=== PATIENT | female | born 1985 | race African-American/Black ===

== ENCOUNTER 2016-06-16 10:11 | Emergency (ER) | payer OTHER ==
[~2016-06-16 10:11] MED LIST: /ESCI10TA PO; /LAMO15TA PO; ACET50TA PO; AUGM875T27 PO; INSUH10VL SC; INSULANT SC; NOVOINJ4 IJ; NOVOLOG100 MG/ML SC; PERCOCET PO; PRENTAB8 PO; PROZ40CA OR; TRAZ50TA2 PO; WELL100T PO; ZANT150T OR; humulin R SQ; lantus SQ; oxcarbazepine PO
[2016-06-16 12:53] LABS: BASO % 0.7 % (0.0-1.0); EOS % 0.6 % (0.0-3.0); LARGE UNSTAINED CELL # 0.1 K/mm3 (0.0-0.4); LARGE UNSTAINED CELL % 1.3 % (0.0-4.0); LYMPH # 1.4 K/mm3 (1.5-4.5); MEAN CORPUSCULAR HEMOGLOBIN 25.5 pg (27.0-33.0); MEAN CORPUSCULAR HGB CONC 29.4 g/dl (32.0-36.5); MEAN CORPUSCULAR VOLUME 86.9 fl (80.0-96.0); MONO # 0.2 K/mm3 (0.0-0.8); MONO % 3.5 % (0.0-5.0); NEUTROPHILS # 4.2 K/mm3 (1.8-7.7); NEUTROPHILS % 70.8 % (36.0-66.0); PLATELET COUNT, AUTOMATED 385 k/mm3 (150-450); RED CELL DISTRIBUTION WIDTH 16.8 % (11.5-14.5); WHITE BLOOD COUNT 5.9 K/mm3 (4.0-10.0)
[2016-06-16 13:06] LABS: ALBUMIN 3.6 GM/DL (3.2-5.2); ALBUMIN/GLOBULIN RATIO 0.84 (1.00-1.93); ALKALINE PHOSPHATASE 113 U/L (45-117); ALT/SGPT 16 U/L (12-78); AMYLASE 42 U/L (25-115); ANION GAP 11 MEQ/L (8-16); AST/SGOT 12 U/L (15-37); BILIRUBIN,DIRECT 0.1 MG/DL (0.0-0.2); BILIRUBIN,TOTAL 0.6 MG/DL (0.2-1.0); BLOOD UREA NITROGEN 7 MG/DL (7-18); CALCIUM LEVEL 9.1 MG/DL (8.5-10.1); CARBON DIOXIDE LEVEL 27 MEQ/L (21-32); CHLORIDE LEVEL 100 MEQ/L (98-107); CREATININE FOR GFR 0.99 MG/DL (0.55-1.02); GLOMERULAR FILTRATION RATE > 60.0 (>60); POTASSIUM SERUM 4.6 MEQ/L (3.5-5.1); SODIUM LEVEL 138 MEQ/L (136-145); TOTAL PROTEIN 7.9 GM/DL (6.4-8.2)
--- NOTE | 2016-06-16 13:06 | REP ---
KUB: Single view. History: Abdominal pain. Question constipation. Findings: The bowel gas pattern is unremarkable. There is air and stool in a nondistended colon. No large or small bowel dilation is seen. Psoas margins and flank stripes are intact. No mass, organomegaly, or pathologic calcification is seen. Impression: Negative KUB. Signed by Ish Rodriguez MD 06/16/2016 04:21 P
[2016-06-16 13:08] LABS: GLUCOSE, FASTING 436 MG/DL (70-105)
--- NOTE | 2016-06-16 13:49 | REP ---
Chest x-ray: Two views. History: Left-sided chest pain . Comparison study: No comparison . Findings: The lungs are well inflated and free of infiltrate. The pleural angles are sharp. The heart size is normal. Pulmonary vasculature is not increased. No significant bony abnormality is seen. Impression: Negative chest x-ray. Signed by Ish Rodriguez MD 06/16/2016 01:40 P
[2016-06-16] MEDS ORDERED: HumuLIN R (REGULAR) INSULIN (NovoLIN R) **100U/ML** PER UNIT As Ordered ONE (14:00)
--- NOTE | 2016-06-16 15:25 | EDDOCDS ---
Physician Documentation [facility] Name: Claire Brewer Age: 30 yrs Sex: Female : 1985 Arrival Date: 06/16/2016 Time: 10:11 Bed I5 / M5 Private MD: HILARY Laura Disposition: 06/16/16 15:08 Discharged to Home/Self Care. Impression: Unspecified abdominal pain, Type 1 diabetes mellitus with hyperglycemia. - Condition is Stable. - Discharge Instructions: Diabetic Ketoacidosis, Blood Glucose Monitoring, Adult, Abdominal Pain, Adult. - Medication Reconciliation, Local Pharmacy Hours form. - Follow up: HILARY Laura; When: Call to arrange an appointment; Reason: Recheck today's complaints. Follow up: Emergency Department; When: As needed; Reason: Worsening of conditions. - Problem is new. - Symptoms have improved. Historical: - Allergies: PENICILLINS; - Home Meds: 1. Lotrel Unknown Oral once daily 2. lamotrigine 225mg in am and 25mg at noon Oral tab 1 tab 2 times per day 3. Lantus 50 Sub-Q soln twice a day 4. Novolog 100 unit/mL Sub-Q soln 1 unit/ 6 carbs- with meals 5. clonazepam 0.5 mg Oral tab nightly as needed 6. Seroquel 25 mg oral tab 1-2 pills prn at HS - PMHx: Anxiety; Depression; Diabetes - IDDM: controlled; Hypertension; - PSHx: ; Cystectomy; Tubal ligation; - Social history: Smoking status: Patient states was never smoker of tobacco. No barriers to communication noted, The patient speaks fluent Romanian, Speaks appropriately for age. - Family history: Not pertinent. - : The pt / caregiver states he / she is not on anticoagulants. Home medication list is obtained from the patient. - Exposure Risk Screening:: None identified. 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 3 in. (160.02 cm) (R); Pain 4/10; 14:48 BP 136 / 84; Pulse 95; Resp 18; Temp 97.4; Pulse Ox 99% ; Pain 0/10; jam1 15:22 BP 135 / 89; Pulse 97; Resp 18; Temp 98.1(T); Pulse Ox 100% on R/A; Pain 2/10; mcp 10:14 Body Mass Index 32.95 (84.37 kg, 160.02 cm) elp MDM: 11:36 [facility] [place] Agreement was scanned into [employer] and attached to record. lg 11:59 UCG by Nursing ordered. hs1 12:14 Financial registration complete. lg 12:17 Amylase Ordered. EDMS 12:17 Basic Metabolic Profile Ordered. EDMS 12:17 CBC with Diff Ordered. EDMS 12:17 Lipase Ordered. EDMS 12:17 Liver Profile Ordered. EDMS 12:17 UA Ordered. EDMS 12:17 Urine Culture Ordered. EDMS 12:17 KUB Ordered. EDMS 13:15 Basic Metabolic Profile Reviewed. ar2 13:15 CBC with Diff Reviewed. ar2 13:15 Liver Profile Reviewed. ar2 13:15 UA Reviewed. ar2 13:15 Amylase Reviewed. ar2 13:15 Lipase Reviewed. ar2 13:18 Insulin Regular Human 5 units Sub-Q once ordered. ar2 13:18 Accucheck ordered. ar2 13:19 D-Dimer Quant Ordered. EDMS 13:19 Chest, 2 View (pa\E\lat) Ordered. EDMS 13:49 TROPONIN Ordered. EDMS 14:26 Basic Metabolic Profile Reviewed. ar2 14:26 Liver Profile Reviewed. ar2 14:26 Amylase Reviewed. ar2 14:26 Lipase Reviewed. ar2 14:26 TROPONIN Reviewed. ar2 14:26 KUB Reviewed. ar2 14:26 Chest, 2 View (pa\E\lat) Reviewed. ar2 14:28 ECG WITH READING ER PHYS+CARDIAG ordered. EDMS 14:37 D-Dimer Quant Reviewed. ar2 Point of Care Testing: Blood Glucose: 14:59 Blood Glucose: 323 mg/dL; mcp Urine : 12:05 hCG Reading: Negative; Control Reading: Positive; jrd Ranges: Administered Medications: 14:03 Drug: Insulin Regular Human 5 units [insulin regular human 100 unit/mL injection mcp solution (0.05 mL)] {Co-Signature: mb9 (Anselmo Burger RN).} Route: Sub-Q; Site: abdomen; Signatures: Dispatcher [employer] EDMS Roselyn Wilcox RN RN srm Peters, Mary, RN RN mcp Ganter, LoriLee, Alen Reg lg Bjorn Wagner PA-C PA-C ar2 Eliz Rodarte RN RN hs1 Anselmo Burger RN mb9 The chart was reviewed and I authenticate all verbal orders and agree with the evaluation and treatment provided.Corrections: (The following items were deleted from the chart) 12:16 11:59 Urine Dip ordered. hs1 ar2 13:49 13:19 TROPONIN+LAB ordered. EDMS EDMS Attachments: 11:36 [facility] [place] Agreement lg MTDD
--- NOTE | 2016-06-16 15:25 | EDDOCDS ---
Nurse's Notes [facility] Name: Claire Brewer Age: 30 yrs Sex: Female : 1985 Arrival Date: 06/16/2016 Time: 10:11 Bed I5 / M5 Private MD: Keya [facility] Diagnosis: Unspecified abdominal pain;Type 1 diabetes mellitus with hyperglycemia Presentation: 06/16 10:16 Presenting complaint: Patient states: lower abd pain sometimes move to upper abdomen. srm back started last night. no burning or frequency with urination. symptoms started last Wednesday. also had chest pain off and on for a couple of weeks. Acute neurological deficits are not present. Mechanism of Injury: No Mechanism of Injury. Adult Sepsis Screening: The patient does not have new or worsening altered mentation. Patient's respiratory rate is less than 22. Systolic blood pressure is greater than 100. Patient has a qSOFA score of 0- Negative Sepsis Screen. Suicide/Homicide risk assessment- the patient denies having any suicidal and/or homicidal ideations and does not present with any other emotional, behavioral or mental health complaints. Status: The patient is a dependent. Transition of care: patient was not received from another setting of care. 10:16 Acuity: GENEVIEVE Level 3 srm 10:16 Method Of Arrival: Walkin/Carried/Asstd srm Triage Assessment: 10:20 General: Appears in no apparent distress, Behavior is appropriate for age, cooperative. srm Pain: Pain currently is 4 out of 10 on a pain scale. HIV screening NA for this visit Offered previously. Musculoskeletal: Reports low back pain. 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 Lotrel Unknown Oral once daily 2. lamotrigine 225mg in am and 25mg at noon Oral tab 1 tab 2 times per day 3. Lantus 50 Sub-Q soln twice a day 4. Novolog 100 unit/mL Sub-Q soln 1 unit/ 6 carbs- with meals 5. clonazepam 0.5 mg Oral tab nightly as needed 6. Seroquel 25 mg oral tab 1-2 pills prn at HS - PMHx: Anxiety; Depression; Diabetes - IDDM: controlled; Hypertension; - PSHx: ; Cystectomy; Tubal ligation; - Social history: Smoking status: Patient states was never smoker of tobacco. No barriers to communication noted, The patient speaks fluent Beninese, Speaks appropriately for age. - Family history: Not pertinent. - : The pt / caregiver states he / she is not on anticoagulants. Home medication list is obtained from the patient. - Exposure Risk Screening:: None identified. Screenin:48 Screening information is obtained from the patient. Primary language is Beninese. Fall jam1 risk: No risks identified. Assistance ADL's: requires no assistance with activities of daily living. Abuse/DV Screen: The patient / caregiver reports he/she is: not in a situation that causes fear, pain or injury. Nutritional screening: No deficits noted. Exposure Risk Screening: None identified. Advance Directives: Currently, there is no health care proxy. There is no active DNR order. There is no living will. There is no Power of Direct Mail Coordinator. Advance directive information has not previously been placed in an [facility] medical record. Further advance directive information is declined. home support is adequate. Assessment: 14:00 General: Appears uncomfortable, Behavior is cooperative. Pain: Location: back, chest mcp and abdomen Pain currently is 4 out of 10 on a pain scale. Neurological: No deficits noted. Respiratory: Airway is patent Respiratory effort is even, unlabored. GI: Abdomen is non- distended Bowel sounds present X 4 quads. Abd is soft X 4 quads. Derm: Skin is pink, warm & dry. 15:00 General: Sitting up on stretcher using cell phone. Awaiting lab results. mcp 15:22 General: Appears in no apparent distress, comfortable, Behavior is cooperative. Pain: mcp Location: abdomen Pain currently is 2 out of 10 on a pain scale. Neurological: No deficits noted. Respiratory: Airway is patent Respiratory effort is even, unlabored. Derm: Skin is pink, warm & dry. Vital Signs: 10:14 BP 134 / 87; Pulse 102; Resp 16; Temp 98.2(O); Pulse Ox 100% on R/A; Weight 84.37 kg elp (R); Height 5 ft. 3 in. (160.02 cm) (R); Pain 4/10; 14:48 BP 136 / 84; Pulse 95; Resp 18; Temp 97.4; Pulse Ox 99% ; Pain 0/10; jam1 15:22 BP 135 / 89; Pulse 97; Resp 18; Temp 98.1(T); Pulse Ox 100% on R/A; Pain 2/10; mcp 10:14 Body Mass Index 32.95 (84.37 kg, 160.02 cm) [facility] Vitals: 10:14 Log In Time: June 16, 2016 at 10:12. elp ED Course: 10:13 Patient visited by Erika Guzman PCA. elp 10:13 HILARY Laura is Private Physician. elp 10:13 Patient moved to Waiting elp 10:14 Patient visited by Erika Guzman PCA. elp 10:14 Patient moved to Pre RCE elp 10:17 Triage Initiated srm 10:59 Patient moved to Triage 3 jrd 11:36 [facility] Payment Agreement was scanned into [employer] and attached to record. lg 12:05 Patient visited by Germán Moreno PCA. jrd 12:09 [facility] ar2 12:09 Stanley Shah MD is Attending Physician. ar2 12:09 Patient visited by Bjorn Wagner PA-C. ar2 12:28 Patient moved to TR2 jrd 12:28 Urine Culture Sent. jrd 12:28 UA Sent. jrd 12:28 Amylase Sent. jrd 12:28 Basic Metabolic Profile Sent. jrd 12:28 CBC with Diff Sent. jrd 12:29 Lipase Sent. jrd 12:29 Liver Profile Sent. jrd 12:48 Patient moved to PD2 / 27 ar2 13:22 Patient moved to I3 / M3 cjh 13:23 Patient moved to I5 / M5 cjh 13:28 KUB Returned. EDMS 14:22 Chest, 2 View (pa\E\lat) Returned. EDMS 14:49 Pt greeted and oriented to ED. Patient advised of names of staff involved in care, jam1 location of call amanda, wait times and NPO status. Patient has correct armband on for positive identification. Placed in gown. Bed in low position. Call light in reach. Side rails up X 1. Adult w/ patient. Door closed. 14:55 Patient visited by Bjorn Wagner PA-C. ar2 15:01 Patient visited by Miriam Balderrama RN. mcp 15:07 ANTONI Laura is Referral Physician. ar2 15:22 No IV's were initiated during this patient's visit. No procedures done that require mcp assistance. 15:23 The patient / caregiver is instructed regarding the plan of care and ED course. mcp Administered Medications: 14:03 Drug: Insulin Regular Human 5 units [insulin regular human 100 unit/mL injection mcp solution (0.05 mL)] {Co-Signature: mb9 (Anselmo Burger RN).} Route: Sub-Q; Site: abdomen; Point of Care Testing: Blood Glucose: 14:59 Blood Glucose: 323 mg/dL; mcp Urine : 12:05 hCG Reading: Negative; Control Reading: Positive; jrd Ranges: Order Results: Lab Order: Amylase; SPEC'M 06/16/16 12:26 Test: AMYLASE; Value: 42; Range: 25-115; Units: U/L; Status: F Lab Order: Basic Metabolic Profile; SPEC'M 06/16/16 12:26 Test: GLUCOSE, FASTING; Value: 436; Range: 70-105; Abnormal: Above upper panic limits; Units: MG/DL; Status: F Test: BLOOD UREA NITROGEN; Value: 7; Range: 7-18; Units: MG/DL; Status: F Test: CREATININE FOR GFR; Value: 0.99; Range: 0.55-1.02; Units: MG/DL; Status: F Test: GLOMERULAR FILTRATION RATE; Value: > 60.0; Range: >60; Status: F Test: SODIUM LEVEL; Value: 138; Range: 136-145; Units: MEQ/L; Status: F Test: POTASSIUM SERUM; Value: 4.6; Range: 3.5-5.1; Units: MEQ/L; Status: F Test: CHLORIDE LEVEL; Value: 100; Range: 98-107; Units: MEQ/L; Status: F Test: CARBON DIOXIDE LEVEL; Value: 27; Range: 21-32; Units: MEQ/L; Status: F Test: ANION GAP; Value: 11; Range: 8-16; Units: MEQ/L; Status: F Test: CALCIUM LEVEL; Value: 9.1; Range: 8.5-10.1; Units: MG/DL; Status: F Test Note: ; Units are mL/min/1.73 m2 Chronic Kidney Disease Staging per NKF: Stage I & II GFR >=60 Normal to Mildly Decreased Stage III GFR 30-59 Moderately Decreased Stage IV GFR 15-29 Severely Decreased Stage V GFR <15 Very Little GFR Left ESRD GFR <15 on SENIOR SOFTWARE QUALITY ENGINEER Lab Order: CBC with Diff; SPEC'M 06/16/16 12:26 Test: WHITE BLOOD COUNT; Value: 5.9; Range: 4.0-10.0; Units: K/mm3; Status: F Test: RED BLOOD COUNT; Value: 4.33; Range: 4.00-5.40; Units: M/mm3; Status: F Test: HEMOGLOBIN; Value: 11.0; Range: 12.0-16.0; Abnormal: Below low normal; Units: g/dl; Status: F Test: HEMATOCRIT; Value: 37.6; Range: 36.0-47.0; Units: %; Status: F Test: MEAN CORPUSCULAR VOLUME; Value: 86.9; Range: 80.0-96.0; Units: fl; Status: F Test: MEAN CORPUSCULAR HEMOGLOBIN; Value: 25.5; Range: 27.0-33.0; Abnormal: Below low normal; Units: pg; Status: F Test: MEAN CORPUSCULAR HGB CONC; Value: 29.4; Range: 32.0-36.5; Abnormal: Below low normal; Units: g/dl; Status: F Test: RED CELL DISTRIBUTION WIDTH; Value: 16.8; Range: 11.5-14.5; Abnormal: Above high normal; Units: %; Status: F Test: PLATELET COUNT, AUTOMATED; Value: 385; Range: 150-450; Units: k/mm3; Status: F Test: NEUTROPHILS %; Value: 70.8; Range: 36.0-66.0; Abnormal: Above high normal; Units: %; Status: F Test: LYMPH %; Value: 23.0; Range: 24.0-44.0; Abnormal: Below low normal; Units: %; Status: F Test: MONO %; Value: 3.5; Range: 0.0-5.0; Units: %; Status: F Test: EOS %; Value: 0.6; Range: 0.0-3.0; Units: %; Status: F Test: BASO %; Value: 0.7; Range: 0.0-1.0; Units: %; Status: F Test: LARGE UNSTAINED CELL %; Value: 1.3; Range: 0.0-4.0; Units: %; Status: F Test: NEUTROPHILS #; Value: 4.2; Range: 1.8-7.7; Units: K/mm3; Status: F Test: LYMPH #; Value: 1.4; Range: 1.5-4.5; Abnormal: Below low normal; Units: K/mm3; Status: F Test: MONO #; Value: 0.2; Range: 0.0-0.8; Units: K/mm3; Status: F Test: EOS #; Value: 0.0; Range: 0.0-0.50; Units: K/mm3; Status: F Test: BASO #; Value: 0.0; Range: 0.0-0.2; Units: K/mm3; Status: F Test: LARGE UNSTAINED CELL #; Value: 0.1; Range: 0.0-0.4; Units: K/mm3; Status: F Lab Order: Lipase; [facility] 06/16/16 12:26 Test: LIPASE; Value: 105; Range: 73-393; Units: U/L; Status: F Lab Order: Liver Profile; [facility] 06/16/16 12:26 Test: AST/SGOT; Value: 12; Range: 15-37; Abnormal: Below low normal; Units: U/L; Status: F Test: ALT/SGPT; Value: 16; Range: 12-78; Units: U/L; Status: F Test: ALKALINE PHOSPHATASE; Value: 113; Range: 45-117; Units: U/L; Status: F Test: BILIRUBIN,TOTAL; Value: 0.6; Range: 0.2-1.0; Units: MG/DL; Status: F Test: BILIRUBIN,DIRECT; Value: 0.1; Range: 0.0-0.2; Units: MG/DL; Status: F Test: TOTAL PROTEIN; Value: 7.9; Range: 6.4-8.2; Units: GM/DL; Status: F Test: ALBUMIN; Value: 3.6; Range: 3.2-5.2; Units: GM/DL; Status: F Test: ALBUMIN/GLOBULIN RATIO; Value: 0.84; Range: 1.00-1.93; Abnormal: Below low normal; Status: F Lab Order: UA; SPEC'M 06/16/16 12:26 Test: APPEARANCE, URINE; Value: CLEAR; Range: CLEAR; Status: F Test: COLOR, URINE; Value: YELLOW; Range: YELLOW; Status: F Test: PH,URINE; Value: 8.0; Range: 5.0-9.0; Units: UNITS; Status: F Test: SPECIFIC GRAVITY URINE AUTO; Value: 1.022; Range: 1.002-1.035; Status: F Test: PROTEIN, URINE AUTO; Value: 2+; Range: NEGATIVE; Abnormal: Above high normal; Units: mg/dL; Status: F Test: GLUCOSE, URINE (UA) AUTO; Value: 3+; Range: NEGATIVE; Abnormal: Above high normal; Units: mg/dL; Status: F Test: KETONE, URINE AUTO; Value: NEGATIVE; Range: NEGATIVE; Units: mg/dL; Status: F Test: UROBILINOGEN, URINE AUTO; Value: 0.2; Range: 0.0-2.0; Units: mg/dL; Status: F Test: BILIRUBIN, URINE AUTO; Value: NEGATIVE; Range: NEGATIVE; Status: F Test: NITRITE, URINE AUTO; Value: NEGATIVE; Range: NEGATIVE; Status: F Test: LEUKOCYTE ESTERASE, URINE AUTO; Value: NEGATIVE; Range: NEGATIVE; Status: F Test: BLOOD, URINE BLOOD; Value: NEGATIVE; Range: NEGATIVE; Status: F Test: WBC, URINE AUTO; Value: 0; Range: 0-3; Units: /HPF; Status: F Test: RBC, URINE AUTO; Value: 3; Range: 0-3; Units: /HPF; Status: F Test: BACTERIA, URINE AUTO; Value: NEGATIVE; Range: NEGATIVE; Status: F Test: SQUAMOUS EPITHELIAL CELL UR AU; Value: 0; Range: 0-6; Units: /HPF; Status: F Test: HYALINE CAST, URINE AUTO; Value: 0; Range: 0-1; Units: /LPF; Status: F Lab Order: D-Dimer Quant; SPEC'M 06/16/16 13:56 Test: D-DIMER QUANT; Value: 337.9; Range: <500; Units: ng/ml; Status: F Lab Order: TROPONIN; SPEC'M 06/16/16 12:26 Test: TROPONIN I; Value: < 0.02; Range: < 0.10; Units: NG/ML; Status: F Test Note: ; Troponin I Reference Interval for [employer] [place] LOCI: 99th Percentile= 0.00-0.045 ng/ml Risk Stratification: <= 0.10 ng/ml Decreased Risk for Adverse Clinical Events. 0.10-1.50 ng/ml Increased Risk for Adverse Clinical Events. Evaluation of additional criterion and/or repeat testing in 2-6 hours is suggested to rule out myocardial damage. >= 1.50 ng/ml Indicative of Myocardial Injury. Lab Order: Fingerstick Blood Sugar; SPEC'M 06/16/16 14:58 Test: BEDSIDE GLUCOSE; Value: 323; Range: 70-105; Abnormal: Above high normal; Units: MG/DL; Status: F Test Note: ; Doctor Notified Radiology Order: KUB Test: KUB REASON FOR EXAMINATION: abdominal pain ? constipation; KUB: Single view.; ; History: Abdominal pain. Question constipation.; ; Findings: The bowel gas pattern is unremarkable. There is air and stool in a; nondistended colon. No large or small bowel dilation is seen. Psoas margins and; flank stripes are intact. No mass, organomegaly, or pathologic calcification is; seen.; ; Impression:; ; Negative KUB.; ; ; ; ; Unreviewed; Radiology Order: Chest, 2 View (pa\E\lat) Test: Chest, 2 View (pa\E\lat) REASON FOR EXAMINATION: left sided chest pain; Chest x-ray: Two views.; ; History: Left-sided chest pain .; ; Comparison study: No comparison .; ; Findings: The lungs are well inflated and free of infiltrate. The pleural; angles are sharp. The heart size is normal. Pulmonary vasculature is not; increased. No significant bony abnormality is seen.; ; Impression:; ; Negative chest x-ray.; ; ; Signed by; Ish Rodriguez MD 06/16/2016 01:40 P; Outcome: 15:08 Discharge ordered by Provider. ar2 15:23 Discharge Assessment: patient administered narcotics - no. The following High Risk mcp Discharge criteria are identified: None. Discharged to home ambulatory, with family. Condition: stable. Discharge instructions given to patient, Instructed on discharge instructions, follow up and referral plans. Demonstrated understanding of instructions, Pt was receptive of discharge instructions/ teaching. No special radiology studies were completed. Property sent home with patient. 15:23 Patient left the ED. [facility] Signatures: Dispatcher [employer] EDMS Roselyn Wilcox, RN RN Miriam Juarez RN RN mcp Murphy, Jane, PHYSICAL THERAPY TEACHER PHYSICAL THERAPY TEACHER jam1 Francisco Javier Kasper, Reg Reg lg Bjorn Wagner, SHAKIR PAGenoveva browne2 Taylor Harden,DAY RN [facility] Erika Guzman, PHYSICAL THERAPY TEACHER PHYSICAL THERAPY TEACHER barip Germán Moreno, PHYSICAL THERAPY TEACHER PHYSICAL THERAPY TEACHER jrd Anselmo Burger RN mb9 MTDD
--- NOTE | 2016-06-17 08:32 | ECGEPIP ---
Stationary ECG Study [facility] - ED Test Date: 2016-06-16 Pat Name: TIFFANIE FLETCHER Department: Room: - Gender: F Patient Support Associate: oliverio : 1985 Requested By: KAIT FINLEY PA-C. Order Number: [id number] Reading MD: Rena Guerrero Measurements Intervals [place] Rate: 91 P: 50 SD: 172 QRS: 11 QRSD: 94 T: 25 QT: 360 QTc: 444 Interpretive Statements SINUS RHYTHM POSSIBLE LEFT ATRIAL ENLARGEMENT POSSIBLE LEFT VENTRICULAR HYPERTROPHY INCREASED RATE 06/20/15 Electronically Signed On 06-17-2016 8:32:42 EST by Rena Guerrero
--- NOTE | 2016-06-18 16:24 | EDDOCDS ---
Nurse's Notes [facility] Name: Tiffanie Fletcher Age: 30 yrs Sex: Female : 1985 Arrival Date: 06/16/2016 Time: 10:11 Bed I5 / M5 Private MD: Keya [facility] [place] Diagnosis: Unspecified abdominal pain;Type 1 diabetes mellitus with hyperglycemia Presentation: 06/16 10:16 Presenting complaint: Patient states: lower abd pain sometimes move to upper abdomen. srm back started last night. no burning or frequency with urination. symptoms started last Wednesday. also had chest pain off and on for a couple of weeks. Acute neurological deficits are not present. Mechanism of Injury: No Mechanism of Injury. Adult Sepsis Screening: The patient does not have new or worsening altered mentation. Patient's respiratory rate is less than 22. Systolic blood pressure is greater than 100. Patient has a qSOFA score of 0- Negative Sepsis Screen. Suicide/Homicide risk assessment- the patient denies having any suicidal and/or homicidal ideations and does not present with any other emotional, behavioral or mental health complaints. Status: The patient is a dependent. Transition of care: patient was not received from another setting of care. 10:16 Acuity: GENEVIEVE Level 3 srm 10:16 Method Of Arrival: Walkin/Carried/Asstd srm Triage Assessment: 10:20 General: Appears in no apparent distress, Behavior is appropriate for age, cooperative. srm Pain: Pain currently is 4 out of 10 on a pain scale. HIV screening NA for this visit Offered previously. Musculoskeletal: Reports low back pain. 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 Lotrel Unknown Oral once daily 2. lamotrigine 225mg in am and 25mg at noon Oral tab 1 tab 2 times per day 3. Lantus 50 Sub-Q soln twice a day 4. Novolog 100 unit/mL Sub-Q soln 1 unit/ 6 carbs- with meals 5. clonazepam 0.5 mg Oral tab nightly as needed 6. Seroquel 25 mg oral tab 1-2 pills prn at HS - PMHx: Anxiety; Depression; Diabetes - IDDM: controlled; Hypertension; - PSHx: ; Cystectomy; Tubal ligation; - Social history: Smoking status: Patient states was never smoker of tobacco. No barriers to communication noted, The patient speaks fluent Italian, Speaks appropriately for age. - Family history: Not pertinent. - : The pt / caregiver states he / she is not on anticoagulants. Home medication list is obtained from the patient. - Exposure Risk Screening:: None identified. Screenin:48 Screening information is obtained from the patient. Primary language is Italian. Fall jam1 risk: No risks identified. Assistance ADL's: requires no assistance with activities of daily living. Abuse/DV Screen: The patient / caregiver reports he/she is: not in a situation that causes fear, pain or injury. Nutritional screening: No deficits noted. Exposure Risk Screening: None identified. Advance Directives: Currently, there is no health care proxy. There is no active DNR order. There is no living will. There is no Power of [place]. Advance directive information has not previously been placed in an [facility] medical record. Further advance directive information is declined. home support is adequate. Assessment: 14:00 General: Appears uncomfortable, Behavior is cooperative. Pain: Location: back, chest mcp and abdomen Pain currently is 4 out of 10 on a pain scale. Neurological: No deficits noted. Respiratory: Airway is patent Respiratory effort is even, unlabored. GI: Abdomen is non- distended Bowel sounds present X 4 quads. Abd is soft X 4 quads. Derm: Skin is pink, warm & dry. 15:00 General: Sitting up on stretcher using cell phone. Awaiting lab results. mcp 15:22 General: Appears in no apparent distress, comfortable, Behavior is cooperative. Pain: mcp Location: abdomen Pain currently is 2 out of 10 on a pain scale. Neurological: No deficits noted. Respiratory: Airway is patent Respiratory effort is even, unlabored. Derm: Skin is pink, warm & dry. Vital Signs: 10:14 BP 134 / 87; Pulse 102; Resp 16; Temp 98.2(O); Pulse Ox 100% on R/A; Weight 84.37 kg elp (R); Height 5 ft. 3 in. (160.02 cm) (R); Pain 4/10; 14:48 BP 136 / 84; Pulse 95; Resp 18; Temp 97.4; Pulse Ox 99% ; Pain 0/10; jam1 15:22 BP 135 / 89; Pulse 97; Resp 18; Temp 98.1(T); Pulse Ox 100% on R/A; Pain 2/10; mcp 10:14 Body Mass Index 32.95 (84.37 kg, 160.02 cm) [facility] Vitals: 10:14 Log In Time: June 16, 2016 at 10:12. elp ED Course: 10:13 Patient visited by Erika Guzman PCA. elp 10:13 HILARY Laura is Private Physician. elp 10:13 Patient moved to Waiting elp 10:14 Patient visited by Erika Guzman PCA. elp 10:14 Patient moved to Pre RCE elp 10:17 Triage Initiated srm 10:59 Patient moved to Triage 3 jrd 11:36 [facility] Payment Agreement was scanned into [employer] and attached to record. lg 12:05 Patient visited by Germán Moreno PCA. jrd 12:09 [facility] Wagner [facility] ar2 12:09 Stanley Shah MD is Attending Physician. ar2 12:09 Patient visited by Kait Wagner PA-C. ar2 12:28 Patient moved to TR2 jrd 12:28 Urine Culture Sent. jrd 12:28 UA Sent. jrd 12:28 Amylase Sent. jrd 12:28 Basic Metabolic Profile Sent. jrd 12:28 CBC with Diff Sent. jrd 12:29 Lipase Sent. jrd 12:29 Liver Profile Sent. jrd 12:48 Patient moved to PD2 / 27 ar2 13:22 Patient moved to I3 / M3 cjh 13:23 Patient moved to I5 / M5 cjh 13:28 KUB Returned. EDMS 14:22 Chest, 2 View (pa\E\lat) Returned. EDMS 14:49 Pt greeted and oriented to ED. Patient advised of names of staff involved in care, jam1 location of call amanda, wait times and NPO status. Patient has correct armband on for positive identification. Placed in gown. Bed in low position. Call light in reach. Side rails up X 1. Adult w/ patient. Door closed. 14:55 Patient visited by Kait Wagner PA-C. ar2 15:01 Patient visited by Miriam Balderrama RN. mcp 15:07 ANTONI Laura is Referral Physician. ar2 15:22 No IV's were initiated during this patient's visit. No procedures done that require [facility] assistance. 15:23 The patient / caregiver is instructed regarding the plan of care and ED course. mcp 16:08 T-Sheet-- Draft Copy was scanned into [employer] and attached to record. klr 17:14 KUB Returned. EDMS 06/17 08:57 EKG-ADULT Returned. EDMS 11:40 ECG/EKG was scanned into [employer] and attached to record. gb 11:41 Radiology Report was scanned into [employer] and attached to record. gb Administered Medications: 06/16 14:03 Drug: Insulin Regular Human 5 units [insulin regular human 100 unit/mL injection mcp solution (0.05 mL)] {Co-Signature: [email or web address] (Anselmo Burger RN).} Route: Sub-Q; Site: abdomen; Point of Care Testing: Blood Glucose: 14:59 Blood Glucose: 323 mg/dL; mcp Urine : 12:05 hCG Reading: Negative; Control Reading: Positive; jrd Ranges: Order Results: Lab Order: Amylase; SPEC'M 06/16/16 12:26 Test: AMYLASE; Value: 42; Range: 25-115; Units: U/L; Status: F Lab Order: Basic Metabolic Profile; SPEC'M 06/16/16 12:26 Test: GLUCOSE, FASTING; Value: 436; Range: 70-105; Abnormal: Above upper panic limits; Units: MG/DL; Status: F Test: BLOOD UREA NITROGEN; Value: 7; Range: 7-18; Units: MG/DL; Status: F Test: CREATININE FOR GFR; Value: 0.99; Range: 0.55-1.02; Units: MG/DL; Status: F Test: GLOMERULAR FILTRATION RATE; Value: > 60.0; Range: >60; Status: F Test: SODIUM LEVEL; Value: 138; Range: 136-145; Units: MEQ/L; Status: F Test: POTASSIUM SERUM; Value: 4.6; Range: 3.5-5.1; Units: MEQ/L; Status: F Test: CHLORIDE LEVEL; Value: 100; Range: 98-107; Units: MEQ/L; Status: F Test: CARBON DIOXIDE LEVEL; Value: 27; Range: 21-32; Units: MEQ/L; Status: F Test: ANION GAP; Value: 11; Range: 8-16; Units: MEQ/L; Status: F Test: CALCIUM LEVEL; Value: 9.1; Range: 8.5-10.1; Units: MG/DL; Status: F Test Note: ; Units are mL/min/1.73 m2 Chronic Kidney Disease Staging per NKF: Stage I & II GFR >=60 Normal to Mildly Decreased Stage III GFR 30-59 Moderately Decreased Stage IV GFR 15-29 Severely Decreased Stage V GFR <15 Very Little GFR Left ESRD GFR <15 on [employer] ATTENDANT Lab Order: CBC with Diff; SPEC'M 06/16/16 12:26 Test: WHITE BLOOD COUNT; Value: 5.9; Range: 4.0-10.0; Units: K/mm3; Status: F Test: RED BLOOD COUNT; Value: 4.33; Range: 4.00-5.40; Units: M/mm3; Status: F Test: HEMOGLOBIN; Value: 11.0; Range: 12.0-16.0; Abnormal: Below low normal; Units: g/dl; Status: F Test: HEMATOCRIT; Value: 37.6; Range: 36.0-47.0; Units: %; Status: F Test: MEAN CORPUSCULAR VOLUME; Value: 86.9; Range: 80.0-96.0; Units: fl; Status: F Test: MEAN CORPUSCULAR HEMOGLOBIN; Value: 25.5; Range: 27.0-33.0; Abnormal: Below low normal; Units: pg; Status: F Test: MEAN CORPUSCULAR HGB CONC; Value: 29.4; Range: 32.0-36.5; Abnormal: Below low normal; Units: g/dl; Status: F Test: RED CELL DISTRIBUTION WIDTH; Value: 16.8; Range: 11.5-14.5; Abnormal: Above high normal; Units: %; Status: F Test: PLATELET COUNT, AUTOMATED; Value: 385; Range: 150-450; Units: k/mm3; Status: F Test: NEUTROPHILS %; Value: 70.8; Range: 36.0-66.0; Abnormal: Above high normal; Units: %; Status: F Test: LYMPH %; Value: 23.0; Range: 24.0-44.0; Abnormal: Below low normal; Units: %; Status: F Test: MONO %; Value: 3.5; Range: 0.0-5.0; Units: %; Status: F Test: EOS %; Value: 0.6; Range: 0.0-3.0; Units: %; Status: F Test: BASO %; Value: 0.7; Range: 0.0-1.0; Units: %; Status: F Test: LARGE UNSTAINED CELL %; Value: 1.3; Range: 0.0-4.0; Units: %; Status: F Test: NEUTROPHILS #; Value: 4.2; Range: 1.8-7.7; Units: K/mm3; Status: F Test: LYMPH #; Value: 1.4; Range: 1.5-4.5; Abnormal: Below low normal; Units: K/mm3; Status: F Test: MONO #; Value: 0.2; Range: 0.0-0.8; Units: K/mm3; Status: F Test: EOS #; Value: 0.0; Range: 0.0-0.50; Units: K/mm3; Status: F Test: BASO #; Value: 0.0; Range: 0.0-0.2; Units: K/mm3; Status: F Test: LARGE UNSTAINED CELL #; Value: 0.1; Range: 0.0-0.4; Units: K/mm3; Status: F Lab Order: Lipase; [facility] 06/16/16 12:26 Test: LIPASE; Value: 105; Range: 73-393; Units: U/L; Status: F Lab Order: Liver Profile; [facility] 06/16/16 12:26 Test: AST/SGOT; Value: 12; Range: 15-37; Abnormal: Below low normal; Units: U/L; Status: F Test: ALT/SGPT; Value: 16; Range: 12-78; Units: U/L; Status: F Test: ALKALINE PHOSPHATASE; Value: 113; Range: 45-117; Units: U/L; Status: F Test: BILIRUBIN,TOTAL; Value: 0.6; Range: 0.2-1.0; Units: MG/DL; Status: F Test: BILIRUBIN,DIRECT; Value: 0.1; Range: 0.0-0.2; Units: MG/DL; Status: F Test: TOTAL PROTEIN; Value: 7.9; Range: 6.4-8.2; Units: GM/DL; Status: F Test: ALBUMIN; Value: 3.6; Range: 3.2-5.2; Units: GM/DL; Status: F Test: ALBUMIN/GLOBULIN RATIO; Value: 0.84; Range: 1.00-1.93; Abnormal: Below low normal; Status: F Lab Order: UA; SPEC'M 06/16/16 12:26 Test: APPEARANCE, URINE; Value: CLEAR; Range: CLEAR; Status: F Test: COLOR, URINE; Value: YELLOW; Range: YELLOW; Status: F Test: PH,URINE; Value: 8.0; Range: 5.0-9.0; Units: UNITS; Status: F Test: SPECIFIC GRAVITY URINE AUTO; Value: 1.022; Range: 1.002-1.035; Status: F Test: PROTEIN, URINE AUTO; Value: 2+; Range: NEGATIVE; Abnormal: Above high normal; Units: mg/dL; Status: F Test: GLUCOSE, URINE (UA) AUTO; Value: 3+; Range: NEGATIVE; Abnormal: Above high normal; Units: mg/dL; Status: F Test: KETONE, URINE AUTO; Value: NEGATIVE; Range: NEGATIVE; Units: mg/dL; Status: F Test: UROBILINOGEN, URINE AUTO; Value: 0.2; Range: 0.0-2.0; Units: mg/dL; Status: F Test: BILIRUBIN, URINE AUTO; Value: NEGATIVE; Range: NEGATIVE; Status: F Test: NITRITE, URINE AUTO; Value: NEGATIVE; Range: NEGATIVE; Status: F Test: LEUKOCYTE ESTERASE, URINE AUTO; Value: NEGATIVE; Range: NEGATIVE; Status: F Test: BLOOD, URINE BLOOD; Value: NEGATIVE; Range: NEGATIVE; Status: F Test: WBC, URINE AUTO; Value: 0; Range: 0-3; Units: /HPF; Status: F Test: RBC, URINE AUTO; Value: 3; Range: 0-3; Units: /HPF; Status: F Test: BACTERIA, URINE AUTO; Value: NEGATIVE; Range: NEGATIVE; Status: F Test: SQUAMOUS EPITHELIAL CELL UR AU; Value: 0; Range: 0-6; Units: /HPF; Status: F Test: HYALINE CAST, URINE AUTO; Value: 0; Range: 0-1; Units: /LPF; Status: F Lab Order: Urine Culture; [facility] 06/16/16 12:26 Test: URINE CULTURE; Value: <EXTERNAL COMMENT eCWMed> FULL REPORT IN LAB NOTES (eCW and Medent).; Status: F Test: URINE CULTURE; Value: URINE CULTURE RESULT SPECIMEN APPEARS CONTAMINATED; Status: F Lab Order: D-Dimer Quant; SPEC'M 06/16/16 13:56 Test: D-DIMER QUANT; Value: 337.9; Range: <500; Units: ng/ml; Status: F Lab Order: TROPONIN; SPEC'M 06/16/16 12:26 Test: TROPONIN I; Value: < 0.02; Range: < 0.10; Units: NG/ML; Status: F Test Note: ; Troponin I Reference Interval for Siemens Sanrad LOCI: 99th Percentile= 0.00-0.045 ng/ml Risk Stratification: <= 0.10 ng/ml Decreased Risk for Adverse Clinical Events. 0.10-1.50 ng/ml Increased Risk for Adverse Clinical Events. Evaluation of additional criterion and/or repeat testing in 2-6 hours is suggested to rule out myocardial damage. >= 1.50 ng/ml Indicative of Myocardial Injury. Lab Order: Fingerstick Blood Sugar; SPECM 06/16/16 14:58 Test: BEDSIDE GLUCOSE; Value: 323; Range: 70-105; Abnormal: Above high normal; Units: MG/DL; Status: F Test Note: ; Doctor Notified Radiology Order: KUB Test: KUB REASON FOR EXAMINATION: abdominal pain ? constipation; KUB: Single view.; ; History: Abdominal pain. Question constipation.; ; Findings: The bowel gas pattern is unremarkable. There is air and stool in a; nondistended colon. No large or small bowel dilation is seen. Psoas margins and; flank stripes are intact. No mass, organomegaly, or pathologic calcification is; seen.; ; Impression:; ; Negative KUB.; ; ; Signed by; Ish Rodriguez MD 06/16/2016 04:21 P; Radiology Order: Chest, 2 View (pa\E\lat) Test: Chest, 2 View (pa\E\lat) REASON FOR EXAMINATION: left sided chest pain; Chest x-ray: Two views.; ; History: Left-sided chest pain .; ; Comparison study: No comparison .; ; Findings: The lungs are well inflated and free of infiltrate. The pleural; angles are sharp. The heart size is normal. Pulmonary vasculature is not; increased. No significant bony abnormality is seen.; ; Impression:; ; Negative chest x-ray.; ; ; Signed by; Ish Rodriguez MD 06/16/2016 01:40 P; Radiology Order: EKG-ADULT Test: EKG-ADULT REASON FOR EXAMINATION: Chest Pain; Stationary ECG Study; [facility] - ED; ; Test Date: 2016-06-16; Pat Name: TIFFANIE FLETCHER Department:; Room: -; Gender: F Spring Former Machine: oliverio; : 1985 Requested By: KAIT WAGNER PA-C.; Order Number: [id number] Reading MD: Rena Guerrero; Measurements; Intervals [place]; Rate: 91 P: 50; OK: 172 QRS: 11; QRSD: 94 T: 25; QT: 360; QTc: 444; Interpretive Statements; SINUS RHYTHM; POSSIBLE LEFT ATRIAL ENLARGEMENT; POSSIBLE LEFT VENTRICULAR HYPERTROPHY; INCREASED RATE 06/20/15; Electronically Signed On 06-17-2016 8:32:42 EST by Rena Guerrero; Outcome: 15:08 Discharge ordered by Provider. ar2 15:23 Discharge Assessment: patient administered narcotics - no. The following High Risk [facility] Discharge criteria are identified: None. Discharged to home ambulatory, with family. Condition: stable. Discharge instructions given to patient, Instructed on discharge instructions, follow up and referral plans. Demonstrated understanding of instructions, Pt was receptive of discharge instructions/ teaching. No special radiology studies were completed. Property sent home with patient. 15:23 Patient left the ED. [facility] Signatures: Dispatcher [employer] EDMS Roselyn Wilcox RN RN srm Peters, Mary, RN RN mcp Murphy, Jane, VIDEO TAPE DUPLICATOR VIDEO TAPE DUPLICATOR jam1 Radha Berg, Reg Reg gb Francisco Javier Kasper, Reg Reg lg Kait Wagner PA-C PA-C ar2 Taylor Harden RN RN Erika Giordano, VIDEO TAPE DUPLICATOR VIDEO TAPE DUPLICATOR elp Germán Moreno, VIDEO TAPE DUPLICATOR VIDEO TAPE DUPLICATOR jrd K[address]idy [address] RN mb9 Chart Complete MTDD
--- NOTE | 2016-06-18 16:24 | EDDOCDS ---
Physician Documentation [facility] Name: Claire Brewer Age: 30 yrs Sex: Female : 1985 Arrival Date: 06/16/2016 Time: 10:11 Bed I5 / M5 Private MD: HILARY Laura Disposition: 06/16/16 15:08 Discharged to Home/Self Care. Impression: Unspecified abdominal pain, Type 1 diabetes mellitus with hyperglycemia. - Condition is Stable. - Discharge Instructions: Diabetic Ketoacidosis, Blood Glucose Monitoring, Adult, Abdominal Pain, Adult. - Medication Reconciliation, Local Pharmacy Hours form. - Follow up: HILARY Laura; When: Call to arrange an appointment; Reason: Recheck today's complaints. Follow up: Emergency Department; When: As needed; Reason: Worsening of conditions. - Problem is new. - Symptoms have improved. Historical: - Allergies: PENICILLINS; - Home Meds: 1. Lotrel Unknown Oral once daily 2. lamotrigine 225mg in am and 25mg at noon Oral tab 1 tab 2 times per day 3. Lantus 50 Sub-Q soln twice a day 4. Novolog 100 unit/mL Sub-Q soln 1 unit/ 6 carbs- with meals 5. clonazepam 0.5 mg Oral tab nightly as needed 6. Seroquel 25 mg oral tab 1-2 pills prn at HS - PMHx: Anxiety; Depression; Diabetes - IDDM: controlled; Hypertension; - PSHx: ; Cystectomy; Tubal ligation; - Social history: Smoking status: Patient states was never smoker of tobacco. No barriers to communication noted, The patient speaks fluent Arabic, Speaks appropriately for age. - Family history: Not pertinent. - : The pt / caregiver states he / she is not on anticoagulants. Home medication list is obtained from the patient. - Exposure Risk Screening:: None identified. ADMIN PROG COORD: 06/16 10:20 LMP 05/31/2016 srm Vital Signs: 10:14 BP 134 / 87; Pulse 102; Resp 16; Temp 98.2(O); Pulse Ox 100% on R/A; Weight 84.37 kg / elp 186 lbs (R); Height 5 ft. 3 in. (160.02 cm) (R); Pain 4/10; 14:48 BP 136 / 84; Pulse 95; Resp 18; Temp 97.4; Pulse Ox 99% ; Pain 0/10; jam1 15:22 BP 135 / 89; Pulse 97; Resp 18; Temp 98.1(T); Pulse Ox 100% on R/A; Pain 2/10; mcp 10:14 Body Mass Index 32.95 (84.37 kg, 160.02 cm) elp MDM: 11:36 [facility] Payment Agreement was scanned into [employer] and attached to record. lg 11:59 UCG by Nursing ordered. hs1 12:14 Financial registration complete. lg 12:17 Amylase Ordered. EDMS 12:17 Basic Metabolic Profile Ordered. EDMS 12:17 CBC with Diff Ordered. EDMS 12:17 Lipase Ordered. EDMS 12:17 Liver Profile Ordered. EDMS 12:17 UA Ordered. EDMS 12:17 Urine Culture Ordered. EDMS 12:17 KUB Ordered. EDMS 13:15 Basic Metabolic Profile Reviewed. ar2 13:15 CBC with Diff Reviewed. ar2 13:15 Liver Profile Reviewed. ar2 13:15 UA Reviewed. ar2 13:15 Amylase Reviewed. ar2 13:15 Lipase Reviewed. ar2 13:18 Insulin Regular Human 5 units Sub-Q once ordered. ar2 13:18 Accucheck ordered. ar2 13:19 D-Dimer Quant Ordered. EDMS 13:19 Chest, 2 View (pa\E\lat) Ordered. EDMS 13:49 TROPONIN Ordered. EDMS 14:26 Basic Metabolic Profile Reviewed. ar2 14:26 Liver Profile Reviewed. ar2 14:26 Amylase Reviewed. ar2 14:26 Lipase Reviewed. ar2 14:26 TROPONIN Reviewed. ar2 14:26 KUB Reviewed. ar2 14:26 Chest, 2 View (pa\E\lat) Reviewed. ar2 14:28 ECG WITH READING ER PHYS+CARDIAG ordered. EDMS 14:37 D-Dimer Quant Reviewed. ar2 16:08 T-Sheet-- Draft Copy was scanned into [employer] and attached to record. klr 06/17 11:40 ECG/EKG was scanned into [employer] and attached to record. gb 11:41 Radiology Report was scanned into [employer] and attached to record. gb Point of Care Testing: Blood Glucose: 06/16 14:59 Blood Glucose: 323 mg/dL; mcp Urine : 12:05 hCG Reading: Negative; Control Reading: Positive; jrd Ranges: Administered Medications: 14:03 Drug: Insulin Regular Human 5 units [insulin regular human 100 unit/mL injection mcp solution (0.05 mL)] {Co-Signature: ernesto (Anselmo Burger RN).} Route: Sub-Q; Site: abdomen; Signatures: Dispatcher [employer] EDMS Roselyn Wilcox RN RN [facility] Miriam Balderrama RN RN mcp Radha Berg, Reg Reg gb Francisco Javier Kasper, Reg Reg lg Bjorn Wagner PA-C PAGenoveva ar2 Eliz Rodarte RN RN hs1 [address] cody orozco The chart was reviewed and I authenticate all verbal orders and agree with the evaluation and treatment provided.Corrections: (The following items were deleted from the chart) 12:16 11:59 Urine Dip ordered. hs1 ar2 13:49 13:19 TROPONIN+LAB ordered. EDMS EDMS Attachments: 11:36 [facility] Payment Agreement lg 16:08 T-Sheet-- Draft Copy [facility] 06/17 11:40 ECG/EKG gb Chart Complete MTDD
--- NOTE | 2016-06-18 16:25 | EDDOCDS ---
Physician Documentation [employer] Name: Claire Brewer Age: 30 yrs Sex: Female : 1985 Arrival Date: 06/16/2016 Time: 10:11 Bed I5 / M5 Private MD: HILARY Laura Disposition: 06/16/16 15:08 Discharged to Home/Self Care. Impression: Unspecified abdominal pain, Type 1 diabetes mellitus with hyperglycemia. - Condition is Stable. - Discharge Instructions: Diabetic Ketoacidosis, Blood Glucose Monitoring, Adult, Abdominal Pain, Adult. - Medication Reconciliation, Local Pharmacy Hours form. - Follow up: HILARY Laura; When: Call to arrange an appointment; Reason: Recheck today's complaints. Follow up: Emergency Department; When: As needed; Reason: Worsening of conditions. - Problem is new. - Symptoms have improved. Historical: - Allergies: PENICILLINS; - Home Meds: 1. Lotrel Unknown Oral once daily 2. lamotrigine 225mg in am and 25mg at noon Oral tab 1 tab 2 times per day 3. Lantus 50 Sub-Q soln twice a day 4. Novolog 100 unit/mL Sub-Q soln 1 unit/ 6 carbs- with meals 5. clonazepam 0.5 mg Oral tab nightly as needed 6. Seroquel 25 mg oral tab 1-2 pills prn at HS - PMHx: Anxiety; Depression; Diabetes - IDDM: controlled; Hypertension; - PSHx: ; Cystectomy; Tubal ligation; - Social history: Smoking status: Patient states was never smoker of tobacco. No barriers to communication noted, The patient speaks fluent Yi, Speaks appropriately for age. - Family history: Not pertinent. - : The pt / caregiver states he / she is not on anticoagulants. Home medication list is obtained from the patient. - Exposure Risk Screening:: None identified. 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 3 in. (160.02 cm) (R); Pain 4/10; 14:48 BP 136 / 84; Pulse 95; Resp 18; Temp 97.4; Pulse Ox 99% ; Pain 0/10; jam1 15:22 BP 135 / 89; Pulse 97; Resp 18; Temp 98.1(T); Pulse Ox 100% on R/A; Pain 2/10; mcp 10:14 Body Mass Index 32.95 (84.37 kg, 160.02 cm) elp MDM: 11:36 [facility] [place] Agreement was scanned into [employer] and attached to record. lg 11:59 UCG by Nursing ordered. hs1 12:14 Financial registration complete. lg 12:17 Amylase Ordered. EDMS 12:17 Basic Metabolic Profile Ordered. EDMS 12:17 CBC with Diff Ordered. EDMS 12:17 Lipase Ordered. EDMS 12:17 Liver Profile Ordered. EDMS 12:17 UA Ordered. EDMS 12:17 Urine Culture Ordered. EDMS 12:17 KUB Ordered. EDMS 13:15 Basic Metabolic Profile Reviewed. ar2 13:15 CBC with Diff Reviewed. ar2 13:15 Liver Profile Reviewed. ar2 13:15 UA Reviewed. ar2 13:15 Amylase Reviewed. ar2 13:15 Lipase Reviewed. ar2 13:18 Insulin Regular Human 5 units Sub-Q once ordered. ar2 13:18 Accucheck ordered. ar2 13:19 D-Dimer Quant Ordered. EDMS 13:19 Chest, 2 View (pa\E\lat) Ordered. EDMS 13:49 TROPONIN Ordered. EDMS 14:26 Basic Metabolic Profile Reviewed. ar2 14:26 Liver Profile Reviewed. ar2 14:26 Amylase Reviewed. ar2 14:26 Lipase Reviewed. ar2 14:26 TROPONIN Reviewed. ar2 14:26 KUB Reviewed. ar2 14:26 Chest, 2 View (pa\E\lat) Reviewed. ar2 14:28 ECG WITH READING ER PHYS+CARDIAG ordered. EDMS 14:37 D-Dimer Quant Reviewed. ar2 16:08 T-Sheet-- Draft Copy was scanned into [employer] and attached to record. klr 06/17 11:40 ECG/EKG was scanned into [employer] and attached to record. gb 11:41 Radiology Report was scanned into [employer] and attached to record. gb Point of Care Testing: Blood Glucose: 06/16 14:59 Blood Glucose: 323 mg/dL; mcp Urine : 12:05 hCG Reading: Negative; Control Reading: Positive; jrd Ranges: Administered Medications: 14:03 Drug: Insulin Regular Human 5 units [insulin regular human 100 unit/mL injection mcp solution (0.05 mL)] {Co-Signature: ernesto (Anselmo Burger RN).} Route: Sub-Q; Site: abdomen; Signatures: Dispatcher [employer] EDMS Roselyn Wilcox RN RN [facility] Miriam Balderrama RN RN mcp Radha Berg, Reg Reg gb Francisco Javier Kasper, Reg Reg lg Bjorn Wagner PA-C PAGenoveva ar2 Eliz Rodarte RN RN hs[address] cody orozco The chart was reviewed and I authenticate all verbal orders and agree with the evaluation and treatment provided.Corrections: (The following items were deleted from the chart) 12:16 11:59 Urine Dip ordered. hs1 ar2 13:49 13:19 TROPONIN+LAB ordered. EDMS EDMS Attachments: 11:36 [facility] Payment Agreement lg 16:08 T-Sheet-- Draft Copy [facility] 06/17 11:40 ECG/EKG gb Chart Complete MTDD
== END 2016-06-16 15:23 | disposition home or self-care (01) ==
LOC: M ED 10:11
DX: K59.00 Constipation, unspecified (principal); E10.65 Type 1 diabetes mellitus with hyperglycemia; F41.9 Anxiety disorder, unspecified; F32.9 Major depressive disorder, single episode, unspecified; I10 Essential (primary) hypertension; Z79.4 Long term (current) use of insulin; Z79.899 Other long term (current) drug therapy; Z88.0 Allergy status to penicillin

== ENCOUNTER → 2016-07-07 | Outpatient (REF) | payer OTHER | LOC: M LAB REF 16:21 | PROVIDERS: ATTEND Physician Assistant | DX: L02.415 Cutaneous abscess of right lower limb (principal) ==

== ENCOUNTER → 2016-11-11 | Outpatient (REF) | payer OTHER | LOC: M SFHCLERA 14:12 | PROVIDERS: ATTEND Physician Assistant | DX: N76.0 Acute vaginitis (principal); R10.9 Unspecified abdominal pain ==

== ENCOUNTER 2017-02-11 08:22 | Emergency (ER) | payer OTHER ==
[~2017-02-11 08:22] MED LIST changes: -ASCO500T PO; -BENA20TA PO; -ESCI10TA2; -FERR1TAB8 PO; -INSUHUMDS SC; -LAMO200T PO; -LAMO25TA2 PO; -LANTINJ4; -LOTR52CA PO; -QUET1TAB7 PO; -TRIN1TAB2 PO
[2017-02-11] MEDS ORDERED: LANTINJ4 (08:44)
[2017-02-11] MEDS ORDERED: ESCI10TA2 (08:44)
[2017-02-11] MEDS ORDERED: QUET1TAB7 PO (08:44)
[2017-02-11] MEDS ORDERED: LAMO200T PO (08:44)
[2017-02-11] MEDS ORDERED: TRIN1TAB2 PO (08:44)
[2017-02-11] MEDS ORDERED: FERR1TAB8 PO (08:44)
[2017-02-11] MEDS ORDERED: NS 500 ML IV ONE (09:00)
[2017-02-11 10:14] LABS: BASO % 0.4 % (0.0-1.0); EOS % 0.3 % (0.0-3.0); IMMATURE GRANULOCYTE % 0.3 % (0-0); LYMPH % 12.9 % (24.0-44.0); MEAN CORPUSCULAR HEMOGLOBIN 25.1 pg (27.0-33.0); MEAN CORPUSCULAR HGB CONC 30.2 g/dl (32.0-36.5); MEAN CORPUSCULAR VOLUME 83.1 fl (80.0-96.0); MONO # 0.3 10^3/uL (0.0-0.8); MONO % 3.3 % (0.0-5.0); NEUTROPHILS # 6.2 10^3/uL (1.8-7.7); NEUTROPHILS % 82.8 % (36.0-66.0); PLATELET COUNT, AUTOMATED 472 10^3/uL (150-450); RED CELL DISTRIBUTION WIDTH 18.6 % (11.5-14.5); WHITE BLOOD COUNT 7.5 10^3/uL (4.0-10.0)
[2017-02-11 10:51] LABS: ANION GAP 9 MEQ/L (8-16); BLOOD UREA NITROGEN 10 MG/DL (7-18); CALCIUM LEVEL 8.6 MG/DL (8.5-10.1); CARBON DIOXIDE LEVEL 23 MEQ/L (21-32); CHLORIDE LEVEL 108 MEQ/L (98-107); GLOMERULAR FILTRATION RATE > 60.0 (>60); GLUCOSE, FASTING 98 MG/DL (70-105); SODIUM LEVEL 140 MEQ/L (136-145)
[2017-02-11 13:32] VITALS: BP 160/99
[2017-03-02] MEDS ORDERED: LOTR52CA PO (15:18)
[2017-03-02] MEDS ORDERED: INSULANT SC ×2 (15:18)
[2017-03-02] MEDS ORDERED: ASCO500T PO (17:47)
[2017-03-02] MEDS ORDERED: LAMO25TA2 PO (17:47)
[2017-03-04] MEDS ORDERED: BENA20TA PO (11:31)
[2017-03-04] MEDS ORDERED: INSUHUMDS SC (11:31)
[2017-03-04] MEDS ORDERED: INSULANT SC (11:31)
== END 2017-02-11 13:35 | disposition home or self-care (01) ==
LOC: M ED 08:22 → EDBD 08:22 → M ED 13:35
DX: E11.649 Type 2 diabetes mellitus with hypoglycemia without coma (principal); D64.9 Anemia, unspecified; G43.909 Migraine, unspecified, not intractable, without status migrainosus; F41.9 Anxiety disorder, unspecified; F33.9 Major depressive disorder, recurrent, unspecified; E78.00 Pure hypercholesterolemia, unspecified; R10.9 Unspecified abdominal pain; Z79.4 Long term (current) use of insulin
CPT/HCPCS: 36415; 78264; 80048; 85025; 99283; A9541

== ENCOUNTER → 2017-02-11 | Outpatient (CLI) | payer OTHER ==
[~2017-02-11] MED LIST changes: +ASCO500T PO; +BENA20TA PO; +ESCI10TA2; +FERR1TAB8 PO; +INSUHUMDS SC; +LAMO200T PO; +LAMO25TA2 PO; +LANTINJ4; +LOTR52CA PO; +QUET1TAB7 PO; +TRIN1TAB2 PO
--- NOTE | 2017-02-11 13:46 | REP ---
NUCLEAR GASTRIC EMPTYING SCAN: Following the oral administration of 1.07 millicuries technetium 99m sulfur colloid in two scrambled eggs in 6 ounces of water. Multiple images of the upper abdomen are performed. Images are obtained for 90 minutes. Gastric activity is measured. At the end of 90 minutes of imaging, 47% of the ingested activity has emptied from the stomach. T-1/2 is calculated to be 67 minutes. This is normal. IMPRESSION: Normal gastric emptying time. Signed by Ryan Boogie MD 02/11/2017 07:53 P
== END ==
LOC: M RAD 09:56
PROVIDERS: ATTEND Internal Medicine
DX: E11.9 Type 2 diabetes mellitus without complications (principal); R10.9 Unspecified abdominal pain; R11.2 Nausea with vomiting, unspecified

== ENCOUNTER 2017-03-27 23:17 | Emergency (ER) | payer OTHER ==
[~2017-03-27] VITALS: Ht 160 cm; Wt 84.1 kg
[~2017-03-27 23:17] MED LIST changes: +ASCO500T PO; +BENA20TA PO; +ESCI10TA2; +FERR1TAB8 PO; +INSUHUMDS SC; +LAMO200T PO; +LAMO25TA2 PO; +LANTINJ4; +LOTR52CA PO; +QUET1TAB7 PO; +TRIN1TAB2 PO
[2017-03-27] MEDS ORDERED: ONDANSETRON 4MG/2ML VIAL (J2405) IV ONE (23:45)
[2017-03-27] MEDS ORDERED: NS 1,000 ML IV ONE (23:45)
[2017-03-28 00:28] LABS: MEAN CORPUSCULAR HEMOGLOBIN 27.2 pg (27.0-33.0); MEAN CORPUSCULAR HGB CONC 32.5 g/dl (32.0-36.5); MEAN CORPUSCULAR VOLUME 83.6 fl (80.0-96.0); PLATELET COUNT, AUTOMATED 312 10^3/uL (150-450); RED CELL DISTRIBUTION WIDTH 17.3 % (11.5-14.5); WHITE BLOOD COUNT 7.5 10^3/uL (4.0-10.0)
[2017-03-28 00:42] LABS: CONTROL LINE HCG INT CTR LINE PRESENT
[2017-03-28 01:11] VITALS: BP 122/81
== END 2017-03-28 01:15 | disposition home or self-care (01) ==
LOC: M ED 23:17
DX: N92.0 Excessive and frequent menstruation with regular cycle (principal); E10.9 Type 1 diabetes mellitus without complications; I10 Essential (primary) hypertension; D64.9 Anemia, unspecified; F33.9 Major depressive disorder, recurrent, unspecified; F41.9 Anxiety disorder, unspecified; Z79.899 Other long term (current) drug therapy; Z79.3 Long term (current) use of hormonal contraceptives; Z79.4 Long term (current) use of insulin; Z88.0 Allergy status to penicillin; Z91.018 Allergy to other foods
CPT/HCPCS: 84703; 85027; 96374; 99284; J2405

== ENCOUNTER 2017-05-27 17:20 | Emergency (ER) | payer OTHER ==
[2017-05-27] MEDS ORDERED: KETOROLAC 30 MG/ML VIAL (J1885) IV (18:00)
[2017-05-27] MEDS: KETOROLAC 30 MG/ML VIAL (J1885) IM (18:11)
== END 2017-05-27 20:09 | disposition home or self-care (01) ==
LOC: M ED 17:20
DX: R51 Headache (principal); R60.0 Localized edema; R06.02 Shortness of breath; E10.9 Type 1 diabetes mellitus without complications; F33.9 Major depressive disorder, recurrent, unspecified; F41.9 Anxiety disorder, unspecified; Z79.899 Other long term (current) drug therapy; Z79.4 Long term (current) use of insulin; Z79.3 Long term (current) use of hormonal contraceptives; Z88.0 Allergy status to penicillin; Z91.018 Allergy to other foods
CPT/HCPCS: J1885